=== PATIENT | male | born 1985 ===

== ENCOUNTER → 2019-01-21 | Outpatient (CLI) | payer OTHER ==
--- NOTE | 2019-01-21 09:00 | US ---
EXAMINATION TYPE: US liver DATE OF EXAM: 01/21/2019 COMPARISON: NONE CLINICAL HISTORY: R94.5 Abnormal LFTS. Elevated liver enzymes, patient states no other symptoms. EXAM MEASUREMENTS: Liver Length: 17.3 cm Gallbladder Wall: 0.2 cm CBD: 0.4 cm Right Kidney: 11.1 x 6.5 x 5.8 cm Pancreas: visualized portions wnl, limited by overlying midline bowel gas Liver: There is increased echogenicity of the hepatic parenchyma with diminished visualization of the portal triads most commonly relating to hepatic steatosis and limiting evaluation for underlying hep atic masses. However there is a focal hypoechoic 4.3 x 3.6 x 4.4cm hypoechoic mass in the left lobe Gallbladder: wnl Evidence for sonographic Castaneda's sign: no CBD: visualized portions wnl, limited by overlying bowel gas Right Kidney: wnl IMPRESSION: 4.3 cm hypoechoic mass in the left hepatic lobe for which three-phase CT abdomen or prefe rably MRI with contrast is recommended for further evaluation. There is background hepatic steatosis and this could represent a true hepatic mass or focal fatty sparing.
== END ==
LOC: RADUSWWP 08:04
PROVIDERS: ATTEND Family Medicine
DX: K76.0 Fatty (change of) liver, not elsewhere classified (principal); R94.5 Abnormal results of liver function studies
CPT/HCPCS: 76705

== ENCOUNTER → 2019-02-07 | Outpatient (CLI) | payer OTHER ==
[2019-02-07 09:51] LABS: Basophils # (A) 0.1 k/uL (0-0.2); Basophils % (A) 1 %; Eosinophils # (A) 0.2 k/uL (0-0.7); Eosinophils % (A) 4 %; HCT 46.6 % (39.0-53.0); HGB 15.7 gm/dL (13.0-17.5); Lymphocytes # (A) 1.7 k/uL (1.0-4.8); Lymphocytes % (A) 30 %; MCH 30.7 pg (25.0-35.0); MCHC 33.6 g/dL (31.0-37.0); MCV 91.3 fL (80.0-100.0); Mean Platelet Volume 6.1; Monocytes # (A) 0.3 k/uL (0-1.0); Monocytes % (A) 5 %; Neutrophils # (A) 3.2 k/uL (1.3-7.7); Neutrophils % (A) 58 %; Platelet Count 296 k/uL (150-450); RBC 5.11 m/uL (4.30-5.90); RDW 12.3 % (11.5-15.5); WBC 5.5 k/uL (3.8-10.6)
[2019-02-07 09:52] LABS: Prothrombin Time 10.8 sec (9.0-12.0)
[2019-02-07 16:24] LABS: % Iron Saturation 29.46 (15.00-50.00); African American GFR (CKD) 114.9 (60.0-200.0); Albumin 4.7 g/dL (3.80-4.90); Albumin/Globulin Ratio 2.04 (1.60-3.17); Anion Gap 10.4 mmol/L (4.00-12.00); Calcium 9.8 mg/dL (8.7-10.3); Carbon Dioxide 26.6 mmol/L (21.6-31.8); Globulin 2.3 g/dL (1.6-3.3); Potassium 4.4 mmol/L (3.5-5.5); Total Bilirubin 0.7 mg/dL (0.2-1.2)
[2019-02-07 17:19] LABS: Hepatitis A Antibody IgM Non-Reactive (Non-Reactive); Hepatitis B Core IgM Non-Reactive (Non-Reactive); Hepatitis B Surface Antigen Non-Reactive (Non-Reactive); Hepatitis C IgG Antibody Non-Reactive (Non-Reactive)
[2019-02-08 12:24] LABS: Ceruloplasmin 26.5 mg/dL (20.0-60.0)
[2019-02-10 08:15] LABS: Protein, Total 7.1 g/dL (6.2-8.2)
[2019-02-10 15:06] LABS: Albumin 3.98 g/dL (3.80-4.90); Gamma Globulin 1.06 g/dL (0.70-1.50)
== END | disposition home or self-care (01) ==
LOC: LABWHC1 08:44
PROVIDERS: ATTEND Nurse Practitioner
DX: R74.8 Abnormal levels of other serum enzymes (principal)
CPT/HCPCS: 36415; 80053; 80074; 82103; 82390; 82728; 83516; 83540; 83550; 84165; 85025; 85610; 86038; 86376

== ENCOUNTER → 2019-02-14 | Outpatient (CLI) | payer OTHER ==
--- NOTE | 2019-02-15 15:49 | MR ---
EXAMINATION TYPE: MR liver wo/w con DATE OF EXAM: 02/14/2019 COMPARISON: Ultrasound 01/21/2019 HISTORY: Liver disease CONTRAST: Standard multiplanar, multisequence MRI departmental protocol utilizing 10 mL intravenous Gadavist ga dolinium contrast. FINDINGS: Liver has normal size and contour. Spleen has normal size and contour. There is no evidence of a pancreatic mass. Pancreas has normal signal pattern. Gallbladder appears normal. Bile ducts are not dilated. I see no discrete liver lesion. There is no adrenal mass. Kidneys have normal size and contour. There is no hydronephrosis. There is no evidence of retroperitoneal adenopathy. There is no ascites. There is normal contrast opacificatio n of the liver spleen and kidneys. There is no pathologic enhancement. IMPRESSION: Normal MR scan of the abdomen including the liver. No discrete liver lesion. No dilated ducts.
== END | disposition home or self-care (01) ==
LOC: RADMRIMAIN 08:08
PROVIDERS: ATTEND Nurse Practitioner
DX: K76.9 Liver disease, unspecified (principal)
CPT/HCPCS: 74183; A9585